=== PATIENT | male | born 1985 ===

== ENCOUNTER 2017-11-07 05:44 | Emergency (ER) | payer SELFPAY ==
[2017-11-07] MEDS ORDERED: HYDROCODONE/APAP 5/325 MG TAB ONE (06:42)
[2017-11-07] MEDS ORDERED: METOCLOPRAMIDE 10 MG/2mL INJ ONE (08:18)
[2017-11-07] MEDS ORDERED: KETOROLAC 30 MG/ML INJ ONE (08:18)
[2017-11-07] MEDS ORDERED: NA CHLORIDE 0.9% 1,000 ML ONE (08:19)
[2017-11-07] MEDS ORDERED: DIPHENHYDRAMINE 50 MG/ML VIAL ONE (08:19)
--- NOTE | 2017-11-07 09:09 | ER ---
Nurse's Notes [facility] Name: Kodak Baptiste Age: 32 yrs Sex: Male : 1985 Arrival Date: 11/07/2017 Time: 05:50 Bed 19 Private MD: Diagnosis: Headache Presentation: 11/07 05:50 Presenting complaint: EMS states: "pt woke up with a headache localized to the right jd3 side of the head and islam. pt reported it continuously got worse to the point he threw up. pt admitted smoking marijuana before we picked him up.". Transition of care: patient was not received from another setting of care. Onset of symptoms was November 07, 2017. Care prior to arrival: None. 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 - Social history:: Smoking status: Patient uses tobacco products, smokes one pack cigarettes per day. Patient uses street drugs, marijuana. Screenin:04 Abuse screen: Denies threats or abuse. Nutritional screening: No deficits noted. jd3 Tuberculosis screening: No symptoms or risk factors identified. Fall Risk None identified. Total Fuentes Fall Scale indicates No Risk (0-24 pts). Assessment: 06:02 General: Appears in no apparent distress. uncomfortable, Behavior is cooperative, jd3 appropriate for age, anxious. Pain: Complains of pain in right islam and left lower quadrant. Neuro: Level of Consciousness is awake, alert, obeys commands, Oriented to person, place, time, situation, Moves all extremities. Gait is steady, Speech is normal, Facial symmetry appears normal, Pupils are PERRLA, Intact. Cardiovascular: Heart tones S1 S2 present Capillary refill < 3 seconds Patient's skin is warm and dry. Respiratory: Airway is patent Respiratory effort is even, unlabored, Respiratory pattern is regular, symmetrical, Breath sounds are clear bilaterally. GI: Abdomen is flat, Bowel sounds present X 4 quads. Abd is soft Abdomen is tender to palpation in left lower quadrant. : No signs and/or symptoms were reported regarding the genitourinary system. EENT: No signs and/or symptoms were reported regarding the EENT system. Derm: Skin is intact, Skin is dry, Skin is normal, Skin temperature is warm. Musculoskeletal: Circulation, motion, and sensation intact. Range of motion: intact in all extremities. 07:10 General: Appears in no apparent distress. uncomfortable, Behavior is calm, cooperative. em Pain: Complains of pain in right islam Pain currently is 8 out of 10 on a pain scale. Quality of pain is described as sharp, Pain began 4 hours ago. Neuro: Level of Consciousness is awake, alert, obeys commands, Oriented to person, place, time, situation, Moves all extremities. Speech is normal, Facial symmetry appears normal, Reports. Cardiovascular: Heart tones S1 S2 present Capillary refill < 3 seconds Patient's skin is warm and dry. Respiratory: Airway is patent Respiratory effort is even, unlabored, Respiratory pattern is regular, symmetrical. GI: Abdomen is flat, Bowel sounds present X 4 quads. : No signs and/or symptoms were reported regarding the genitourinary system. EENT: No signs and/or symptoms were reported regarding the EENT system. Derm: Skin is intact, Skin is pink, warm \\T\\ dry. Musculoskeletal: Range of motion: intact in all extremities. 09:49 Reassessment: Patient appears in no apparent distress at this time. Patient and/or iw family updated on plan of care and expected duration. Pain level reassessed. I agree with above assessment by Toro Tolbert LVN. Vital Signs: 05:59 BP 123 / 87; Pulse 81; Resp 17 S; Pulse Ox 100% on R/A; Weight 65.77 kg (R); Height 5 jd3 ft. 7 in. (170.18 cm) (R); Pain 10/10; 07:32 BP 109 / 68; Pulse 65; Resp 15; Temp 98.2(O); Pulse Ox 99% on R/A; mh5 09:02 BP 100 / 57; Pulse 54; Resp 14; Pulse Ox 100% on R/A; mh5 05:59 Body Mass Index 22.71 (65.77 kg, 170.18 cm) jd3 Chloé Coma Score: 06:15 Eye Response: spontaneous(4). Verbal Response: oriented(5). Motor Response: obeys kb commands(6). Total: 15. ED Course: 05:50 Patient arrived in ED. jd3 05:54 Triage completed. jd3 05:55 Sharron Dong FNP-C is [facility]. kb 05:55 Da Ng MD is Attending Physician. kb 06:01 Arm band placed on. jd3 06:04 Patient has correct armband on for positive identification. Bed in low position. Call jd3 light in reach. Side rails up X2. 06:15 Dwayne Biswas, RN is Primary Nurse. jd3 06:37 CT Head Brain wo Cont In Process Unspecified. EDMS 07:04 Report given to Azam SAM. jd3 07:08 Toro Tolbert LVN is Primary Nurse. em 07:46 No provider procedures requiring assistance completed. em 07:48 Initial lab(s) drawn, by me, held in ED. Inserted saline lock: 18 gauge in right mh5 forearm, using aseptic technique. Blood collected. 09:57 IV discontinued, intact, bleeding controlled, No redness/swelling at site. Pressure iw dressing applied. Administered Medications: 06:24 Drug: [place] 5 mg-325 mg 1 tabs Route: PO; jd3 07:47 Follow up: Response: No adverse reaction; Pain is decreased em 08:05 Drug: NS 0.9% 1000 ml Route: IV; Rate: 1000 ml; Site: right forearm; hj 09:49 Follow up: IV Status: Completed infusion; IV Intake: 1000ml em 08:05 Drug: TORadol 30 mg Route: IVP; Site: right forearm; hj 09:49 Follow up: Response: No adverse reaction; Pain is decreased em 08:05 Drug: Reglan 10 mg Route: IVP; Site: right forearm; hj 09:48 Follow up: Response: No adverse reaction em 08:05 Drug: Benadryl 12.5 mg Route: IVP; Site: right antecubital; hj 09:48 Follow up: Response: No adverse reaction em Intake: 09:49 IV: 1000ml; Total: 1000ml. em Outcome: 09:09 Discharge ordered by . kb 09:57 Discharged to home ambulatory. iw 09:57 Condition: good 09:57 Discharge instructions given to patient, Instructed on discharge instructions, follow up and referral plans. Demonstrated understanding of instructions, follow-up care. 09:59 Patient left the ED. iw Signatures: Dispatcher [employer] Sharron Devine, AUTOMOTIVE SPECIALTY TECHNICIAN-C AUTOMOTIVE SPECIALTY TECHNICIAN-Toro Bee, ROD WELDER ROD WELDER Jesi Fair RN RN iw Joaquin, Henry RN Tanisha Mcclellan [facility] Dwayne Biswas RN RN jd3
--- NOTE | 2017-11-07 09:09 | EDPHYS ---
Physician Documentation [facility] Name: Kodak Baptiste Age: 32 yrs Sex: Male : 1985 Arrival Date: 11/07/2017 Time: 05:50 Bed 19 Private MD: ED Physician Da Ng HPI: 11/07 06:15 This 32 yrs old Patient Declined Male presents to ER via EMS with complaints of kb headache. 06:15 The patient complains of pain to the right temporal area. The patient describes the kb headache as throbbing. Onset: The symptoms/episode began/occurred this morning, 2.5 hour(s) ago. Associated signs and symptoms: Pertinent positives: vomiting, Pertinent negatives: altered mental status, dizziness, fever, malaise, nausea, neck stiffness, paresthesias, Photophobia rash, sinus congestion, sinus tenderness, vision changes, vision loss, weakness, vertigo. Severity of symptoms: At its worst the pain was moderate, in the emergency department the pain is unchanged. Headache History: Denies prior headaches. The symptoms are alleviated by nothing. the symptoms are aggravated by nothing. The patient has not experienced similar symptoms in the past. The patient has not recently seen a physician. 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 - Social history:: Smoking status: Patient uses tobacco products, smokes one pack cigarettes per day. Patient uses street drugs, marijuana. ROS: 06:15 Constitutional: Negative for fever, chills, and weight loss, ENT: Negative for injury, kb pain, and discharge, Neck: Negative for injury, pain, and swelling, Cardiovascular: Negative for chest pain, palpitations, and edema, Respiratory: Negative for shortness of breath, cough, wheezing, and pleuritic chest pain, Back: Negative for injury and pain, : Negative for injury, bleeding, discharge, and swelling, MS/Extremity: Negative for injury and deformity, Skin: Negative for injury, rash, and discoloration. 06:15 Abdomen/GI: Positive for vomiting, Negative for abdominal pain, nausea, diarrhea, constipation, abdominal cramps, abdominal distension, anorexia. 06:15 Neuro: Positive for headache, Negative for altered mental status, dizziness, gait disturbance, hearing loss, loss of consciousness, numbness, seizure activity, speech changes, syncope, near syncope, tingling, tinnitus, tremor, visual changes, weakness. Exam: 06:15 Constitutional: This is a well developed, well nourished patient who is awake, alert, kb and in no acute distress. Head/Face: Normocephalic, atraumatic. ENT: Nares patent. No nasal discharge, no septal abnormalities noted. Tympanic membranes are normal and external auditory canals are clear. Oropharynx with no redness, swelling, or masses, exudates, or evidence of obstruction, uvula midline. Mucous membranes moist. Neck: Trachea midline, no thyromegaly or masses palpated, and no cervical lymphadenopathy. Supple, full range of motion without nuchal rigidity, or vertebral point tenderness. No Meningismus. Chest/axilla: Normal chest wall appearance and motion. Nontender with no deformity. No lesions are appreciated. Cardiovascular: Regular rate and rhythm with a normal S1 and S2. No gallops, murmurs, or rubs. Normal PMI, no JVD. No pulse deficits. Respiratory: Lungs have equal breath sounds bilaterally, clear to auscultation and percussion. No rales, rhonchi or wheezes noted. No increased work of breathing, no retractions or nasal flaring. Abdomen/GI: Soft, non-tender, with normal bowel sounds. No distension or tympany. No guarding or rebound. No evidence of tenderness throughout. Back: No spinal tenderness. No costovertebral tenderness. Full range of motion. Skin: Warm, dry with normal turgor. Normal color with no rashes, no lesions, and no evidence of cellulitis. MS/ Extremity: Pulses equal, no cyanosis. Neurovascular intact. Full, normal range of motion. Neuro: Awake and alert, GCS 15, oriented to person, place, time, and situation. Cranial nerves II-XII grossly intact. Motor strength 5/5 in all extremities. Sensory grossly intact. Cerebellar exam normal. Normal gait. Vital Signs: 05:59 BP 123 / 87; Pulse 81; Resp 17 S; Pulse Ox 100% on R/A; Weight 65.77 kg (R); Height 5 jd3 ft. 7 in. (170.18 cm) (R); Pain 10/10; 07:32 BP 109 / 68; Pulse 65; Resp 15; Temp 98.2(O); Pulse Ox 99% on R/A; mh5 09:02 BP 100 / 57; Pulse 54; Resp 14; Pulse Ox 100% on R/A; mh5 05:59 Body Mass Index 22.71 (65.77 kg, 170.18 cm) jd3 [place] Coma Score: 06:15 Eye Response: spontaneous(4). Verbal Response: oriented(5). Motor Response: obeys kb commands(6). Total: 15. MDM: 05:55 Patient medically screened. kb 06:15 Data reviewed: vital signs, nurses notes. Data interpreted: Pulse oximetry: on room air kb is 100 %. Interpretation: normal. 07:36 Counseling: I had a detailed discussion with the patient and/or guardian regarding: the kb historical points, exam findings, and any diagnostic results supporting the discharge/admit diagnosis, radiology results, the need for outpatient follow up, a family practitioner, to return to the emergency department if symptoms worsen or persist or if there are any questions or concerns that arise at home. 08:32 ED course: Pt sleeping comfortably on stretcher.. kb 09:09 ED course: Pt states the headache is going away. kb 11/07 06:15 Order name: CT Head Brain wo Cont kb 11/07 07:42 Order name: IV Start; Complete Time: 08:13 kb Administered Medications: 06:24 Drug: [place] 5 mg-325 mg 1 tabs Route: PO; jd3 07:47 Follow up: Response: No adverse reaction; Pain is decreased em 08:05 Drug: NS 0.9% 1000 ml Route: IV; Rate: 1000 ml; Site: right forearm; hj 09:49 Follow up: IV Status: Completed infusion; IV Intake: 1000ml em 08:05 Drug: TORadol 30 mg Route: IVP; Site: right forearm; hj 09:49 Follow up: Response: No adverse reaction; Pain is decreased em 08:05 Drug: Reglan 10 mg Route: IVP; Site: right forearm; hj 09:48 Follow up: Response: No adverse reaction em 08:05 Drug: Benadryl 12.5 mg Route: IVP; Site: right antecubital; hj 09:48 Follow up: Response: No adverse reaction em Disposition: 21:15 Co-signature as Attending Physician, Da Ng MD. neymar Disposition: 11/07/17 09:09 Discharged to Home. Impression: Headache. - Condition is Stable. - Discharge Instructions: General Headache Without Cause, [id number]. - Medication Reconciliation Form, Thank You Letter, Antibiotic Education, Prescription Opioid Use form. - Follow up: Emergency Department; When: As needed; Reason: Worsening of condition. Follow up: Private Physician; When: 2 - 3 days; Reason: Recheck today's complaints, Continuance of care, Re-evaluation by your physician. Signatures: Dispatcher [employer] Sharron Devine, VERONICA MARADIAGA-Da Nicolas MD MD pkl Williams, Irene, RN RN iw Joaquin, Henry, RN RN hj Davies, Jonathon, RN RN jd3 Munoz, Edgar LVN em Corrections: (The following items were deleted from the chart) 07:36 07:36 Counseling: I had a detailed discussion with the patient and/or guardian jaden regarding: the historical points, exam findings, and any diagnostic results supporting the discharge/admit diagnosis, the need for outpatient follow up, a family practitioner, to return to the emergency department if symptoms worsen or persist or if there are any questions or concerns that arise at home, kb
--- NOTE | 2017-11-07 11:19 | RAD REPORT ---
EXAM DESCRIPTION: CT - Head Brain Wo Cont - 11/07/2017 9:09 am CLINICAL HISTORY: Headache COMPARISON: December 2016 TECHNIQUE: Computed axial tomography of the head was obtained. IV contrast was not requested.A preli minary report was generated by [employer] and reviewed prior to this dictation All CT scans are performed using dose optimization technique as appropriate and may include automated exposure control or mA/KV adjustment according to patient size. FINDINGS: An intracranial bleed is not seen . The ventricles are normal in caliber. No extra-axial fluid collection is noted. Fluid within the sinuses/ mastoids is not seen. IMPRESSION: No acute intracranial abnormality is seen. If patient's symptoms persist MRI of the bra in would be recommended.
== END 2017-11-07 09:59 | disposition home or self-care (01) ==
LOC: EDSEX 05:44 → ER 05:44
DX: R05 Cough (principal)
CPT/HCPCS: 70450; 99284; J2765; J7030